=== PATIENT | female | born 1975 | race African-American/Black ===

== ENCOUNTER 2017-09-20 19:28 | Emergency (ER) | payer MEDICARE, MEDICAID ==
[~2017-09-20] VITALS: Ht 165.1 cm; Wt 108.9 kg
[~2017-09-20 19:28] MED LIST: IBUPROFEN600 MG ORAL; METFORMIN HCL500 M1 ORAL
[2017-09-20 19:50] VITALS: BP 144/83
[2017-09-20] MEDS ORDERED: Norco 5mg/325mg tab ORAL ONE (20:30)
[2017-09-20] MEDS ORDERED: NORCO 5-325 TA1 EAC1 ORAL (20:39)
[2017-09-20 20:49] VITALS: BP 144/83
--- NOTE | 2017-09-20 22:42 | Emergency Room Report ---
History of Present Illness General Chief Complaint: Lower Back Pain or Injury Source: Patient Present Illness HPI The patient is a 42-year-old female presenting for lower back pain. She states that she has a history of lumbar disc herniation after work related injury years prior. She sees her primary doctor and receives Tylenol No. 3 but states that this has not been helping recently. Pain is a 9/10 dull ache and does not radiate from the lower back. Worse with movement. She denies any recent injury. She denies any numbness or tingling. She denies any urinary incontinence Allergies: Coded Allergies: No Known Allergies (Unverified , 03/08/16) Patient History Past Medical History: see triage record Pertinent Family History: none Last Menstrual Period: jun 2016, had hysterectomy Now: No Reviewed Nursing Documentation: PMH: Agreed, PSxH: Agreed Nursing Documentation-PMH Hx Asthma: Yes Hx Diabetes: Yes Review of Systems All Other Systems: negative except mentioned in HPI Physical Exam Vital Signs Date Time Temp Pulse Resp B/P (MAP) Pulse Ox O2 Delivery O2 Flow Rate FiO2 09/20/17 19:33 97.9 62 18 144/83 98 Room Air Sp02 EP Interpretation: reviewed, normal General Appearance: no apparent distress, alert, GCS 15, non-toxic Head: normocephalic, atraumatic Eyes: bilateral eye normal inspection, bilateral eye PERRL ENT: hearing grossly normal, normal pharynx, no angioedema, normal voice Neck: full range of motion, supple/symm/no masses Respiratory: chest non-tender, lungs clear, normal breath sounds, speaking full sentences Musculoskeletal: back normal, gait/station normal, normal range of motion, tender - bilat lumbar paraspinal muscles Neurologic: alert, oriented x3, responsive, motor strength/tone normal, sensory intact, speech normal Skin: normal color, no rash, warm/dry, well hydrated Medical Decision Making PA Attestation Dr. Cool is my supervising physician. Patient management was discussed with my supervising physician Diagnostic Impression: Primary Impression: Chronic low back pain Qualified Codes: M54.5 - Low back pain; G89.29 - Other chronic pain ER Course The patient is a 42-year-old female presenting for lower back pain. Ddx considered include but not limited to lumbar strain, degenerative disease, epidural abscess, cauda equina syndrome, chronic pain, narcotic dependency. PE: NAD There is tenderness to palpation over bilateral lumbar paraspinal muscles. No midline tenderness or step-offs. Normal gait CURES shows no recent prescriptions. She'll be discharged home with a limited prescription for [place]. ER precautions are given Last Vital Signs Date Time Temp Pulse Resp B/P (MAP) Pulse Ox O2 Delivery O2 Flow Rate FiO2 09/20/17 19:33 97.9 62 18 144/83 98 Room Air Status: improved Disposition: HOME, SELF-CARE Condition: Improved Scripts Hydrocodone Bit/Acetaminophen 5-325* (NORCO 5-325 TABLET*) 1 Each Tablet 1 TAB ORAL Q6HR Y for For Pain, #10 TAB Prov: RHINA WOODWARD 09/20/17 Referrals: NON PHYSICIAN (PCP) Patient Instructions: Back Pain, Adult Additional Instructions: I discussed my findings with the patient. All questions and concerns have been answered. Treatment and medication compliance have been addressed. I advised the patient that they need to follow up with PMD in 3-5 days. Return to ED if symptoms worsen, new symptoms arise, or if needed for any reason. Patient verbalized understanding of discharge instructions. RHINA WOODWARD Sep 20, 2017 22:42
== END 2017-09-20 20:49 | disposition home or self-care (01) ==
LOC: EMR 20:28
DX: M54.5 Low back pain (principal); G89.29 Other chronic pain; E11.9 Type 2 diabetes mellitus without complications; J45.909 Unspecified asthma, uncomplicated
CPT/HCPCS: 99283